=== PATIENT | female | born 1985 | race Caucasian/White ===

== ENCOUNTER 2018-02-19 13:45 | Emergency (ER) | payer OTHER ==
[~2018-02-19] VITALS: Ht 160 cm; Wt 49.9 kg
[~2018-02-19 13:45] MED LIST: CIPRO 500MG TA500 MG PO; FLEXERIL10 MG PO; PYRIDIUM200 MG PO
--- NOTE | 2018-02-19 13:59 | ED GENERAL ADULT ---
History of Present Illness General Chief Complaint: Syncope and Near-Syncope Stated Complaint: SYNCOPE Source: patient Exam Limitations: clinical condition Vital Signs & Intake/Output Vital Signs & Intake/Output Vital Signs Date Time Temp Pulse Resp B/P B/P Pulse O2 O2 Flow FiO2 Mean Ox Delivery Rate 02/19 1624 98.2 98 18 136/86 99 Room Air 02/19 1522 126 24 139/65 99 Room Air 02/19 1416 101.1 02/19 1350 101.1 115 18 136/56 99 Room Air Allergies Coded Allergies: Penicillins (Severe, ANAPHYLAXIS - COMA 02/19/18) aspirin (Severe, ANAPHYLAXIS 02/19/18) Reconcile Medications No Known Home Medications Triage Note: PT DROVE HERSELF TO THE ER WITH C/O CHEST PAIN. PT HAD SYNCOPAL EPISODE WHILE WAITING FOR TRIAGE. PT BROUGHT TO ROOM 10 ALERT AND C/O /10 CHEST PAIN. Triage Nurses Notes Reviewed? yes : No Patient currently breastfeeds: No HPI: Patient is a 32-year-old female who states she has no past medical history who presented by private vehicle today to the ED. When she arrived at the triage desk, she abruptly collapsed, and thankfully was able to be guided the floor without trauma by staff. Just prior to collapsing she stated that she had chest pain. We rushed her to a resuscitation bay, where she began to regain consciousness and stated that since yesterday she felt that she could not breathe. She is tachycardic into the 120s, but not hypoxic. Once she regained normal orientation, she states that she has intense retrosternal chest pressure and the sensation that she cannot get enough air. She has no history of DVT or PE, and neither does her mother or father to her knowledge. She does not take oral contraceptives and has had no recent long distance travel. She does state that she has been "very stressed recently" from family stressors. Past History Travel History Traveled to [place] past 21 day No Medical History Any Pertinent Medical History? see below for history Surgical History Surgical History: non-contributory Psychosocial History What is your primary language Panamanian Tobacco Use: Never used ETOH Use: denies use Illicit Drug Use: denies illicit drug use Family History Hx Contributory? No Review of Systems Review of Systems Constitutional: Reports: see HPI. EENTM: Reports: no symptoms. Respiratory: Reports: see HPI, short of breath. Denies: cough, hemoptysis, orthopnea, sputum production, stridor, wheezing. Cardiovascular: Reports: see HPI, chest pain. GI: Reports: no symptoms. Genitourinary: Reports: no symptoms. Musculoskeletal: Reports: no symptoms. Skin: Reports: no symptoms. Neurological/Psychological: Reports: see HPI, anxiety. Hematologic/Endocrine: Reports: no symptoms. Immunologic/Allergic: Reports: no symptoms. All Other Systems: Reviewed and Negative Physical Exam Physical Exam General Appearance: well developed/nourished, lethargic, severe distress Comments: HEENT: Inspection of the head reveals a normocephalic cranium with no signs of trauma. Ophtho: Extraocular muscles are intact and pupils are equal and reactive to light bilaterally with no afferent pupillary defect. The sclera are noninjected , and there is no obvious discharge. Neck: The trachea is midline, there is no obvious asymmetry or mass over the thyroid, and there is no midline cervical spine tenderness Respiratory: Dyspneic, tachypnea, but not hypoxic. Cardiac: Tachycardic without appreciable murmurs on auscultation. No obvious JVD. GI: Examination of the abdomen reveals no significant focal tenderness in any of the four quadrants. There is negative Jordan's sign, negative McBurney's point tenderness, negative John sign, negative Dai-Kilgore sign, and no signs of peritonitis whatsoever on percussion or deep palpation. The skin is intact with no sign of trauma or infection. : Deferred Neuro: After she regained consciousness, the patient is oriented to person, place, time, and situation, with no obvious focal motor deficits. There were no sensory deficits, and the patient exhibit purposeful movement of all 4 extremities. Cranial nerves II through XII are intact, and gait is normal. Behavioral: Anxious regarding her current situation and symptoms Dermatologic: Dermatologic examination reveals no diffuse rashes or exanthems, no petechiae, no ecchymoses, and no other signs of erythema or infection. Core Measures ACS in differential dx? Yes CVA/TIA Diagnosis: No Sepsis Present: No Sepsis Focused Exam Completed? No Progress Differential Diagnoses I considered the following diagnoses in my evaluation of the patient: PE, ACS, pneumothorax, pneumonia, multiple other processes possible Plan of Care: Orders Procedure Date/time Status LACTIC ACID 02/19 1857 Active BLOOD CULTURE 02/19 1615 Active BLOOD CULTURE 02/19 1557 Active LACTIC ACID 02/19 1557 Complete EKG 02/19 1419 Active Add-on Test (ER Only) 02/19 1418 Active HUMAN BETA HCG SCREEN 02/19 1406 Complete TROPONIN LEVEL 02/19 1354 Complete COMPREHENSIVE METABOLIC PANEL 02/19 1354 Complete CBC WITHOUT DIFFERENTIAL 02/19 1354 Complete EKG 02/19 1349 Active Current Medications Sig/Dominique Start time Last Medication Dose Stop Time Status Admin Fluconazole 400 MG ONCE ONE 02/19 1645 AC (Diflucan) 02/19 1844 Sodium Chloride 200 ML (Normal Saline 0.9%) Laboratory Tests 02/19/18 161: Lactic Acid 1.2 02/19/18 140: Anion Gap 14, Estimated GFR > 60, BUN/Creatinine Ratio 13.3, Glucose 90, Calcium 9.3, Total Bilirubin 1.6 H, AST 18, ALT 26, Alkaline Phosphatase 50, Troponin I < 0.01, Total Protein 7.3, Albumin 4.5, Globulin 2.8, Albumin/Globulin Ratio 1.6 , Total Beta HCG NEGATIVE, CBC w Diff NO MAN DIFF REQ, RBC 4.72, MCV 81.4, MCH 27.5, MCHC 33.8, RDW 15.1 H, MPV 9.9, Gran % 60.0, Lymphocytes % 32.2, Monocytes % 7.1, Eosinophils % 0.3, Basophils % 0.4, Absolute Granulocytes 3.5, Absolute Lymphocytes 1.9, Absolute Monocytes 0.4, Absolute Eosinophils 0, Absolute Basophils 0 Microbiology 02/19 1615 BLOOD: Blood Culture - RECD 02/19 161 BLOOD: Blood Culture - RECD Initial ED EKG: SINUS TACHYCARDIA WITH BORDERLINE PROLONGED qt INTERVAL, NORMAL pr INTERVALS AND qt INTERVALS, NONSPECIFIC st SEGMENT CHANGES, NO stemi Comments: Patient presented with a constellation of symptoms including syncope at the triage desk, dyspnea, tachypnea, tachycardia, and fever. Everything except the fever was concerning for pulmonary embolism. She had no risk factors, no exogenous hormones, and was a nonsmoker. However, even our high clinical concern we obtained a CT angiogram which was negative for PE, however it was positive for pneumomediastinum. Given her fever, we treated this aggressively. I immediately contacted [place] to coordinate transfer as there is no cardiothoracic surgery. Hola; I contacted ID to discuss antibiotic choice; I contacted EMS to transfer the patient via ALS to [place]. We administered clindamycin but the patient declined the ciprofloxacin and the antifungal, fearing another anaphylactic reaction like she had with penicillin. Her anxiety is contributing to her overall syndrome significantly, and she required significant coaching and reassurance. Nevertheless, the patient was transferred to [place] for definitive care in guarded condition. 1550: Discussed with [facility]. Accepted to Dr. Esparza. Called ID to discuss abx choice. 1600: Discussed w/ ID on-call Dr. Palacios. Given the patient's anaphylactic penicillin allergy, he stated that Zosyn and Unasyn are both contraindicated, and recommended clindamycin and ciprofloxacin IV. I have ordered these dosages to be given medially following cultures. Lactate ordered. PATIENT: GLEN ODONNELL PRESENT AGE: 32 PATIENT ACCOUNT NO: [id number] : 87 LOCATION: [facility] ORDERING PHYSICIAN: Cuco Phillips DO SERVICE DATE: 02/19/18 EXAM TYPE: CAT - CTA CHEST-PULMONARY EMBOLISM EXAMINATION: CT ANGIOGRAM OF THE CHEST WITH AND WITHOUT CONTRAST (CT PULMONARY ANGIOGRAM FOR PE) CLINICAL INFORMATION: Chest pain. COMPARISON: Chest radiography, most recent 02/19/2018. TECHNIQUE: Prior to contrast administration, noncontrast localization images were obtained. Subsequently, multidetector volumetric imaging was performed from the thoracic inlet to below the diaphragms following the administration of 95 mL Optiray 320 intravenous contrast. No contrast reaction reported. Sagittal, coronal, and MIP oblique sagittal reformatted images were obtained on the CT workstation, uploaded to PACS, and reviewed. Total exam dose-length product 158 mGy-cm. FINDINGS: QUALITY OF STUDY/CONTRAST BOLUS: Satisfactory. PULMONARY ARTERIES: No central or segmental pulmonary emboli. THORACIC AORTA: No aneurysm or dissection. LUNG: No focal consolidation, nodules or masses. PLEURA: No pleural effusion or pneumothorax. MEDIASTINUM: Small volume of pneumomediastinum. No mediastinal fluid collection. Residual thymic tissue noted. No mediastinal adenopathy. No cardiomegaly. No evidence of septal bowing or right heart strain. CHEST WALL/AXILLA: No axillary or internal mammary lymphadenopathy. OSSEOUS STRUCTURES: No acute osseous abnormalities. UPPER ABDOMEN: No acute intra-abdominal abnormalities. No reflux of contrast into the hepatic veins to suggest elevated right heart pressures. IMPRESSION: 1. No pulmonary embolism. 2. Small volume of pneumomediastinum. 3. No acute pulmonary pathology. 4. Findings discussed with Dr. Phillips at 3:25 PM on 02/19/2018. VTE: Negative DICTATED BY: Ryland Finney MD DATE/TIME DICTATED:02/19/181523 E BUSINESS MANAGER:ALEX DATE/TIME TRANSCRIBED:02/19/181523 CONFIDENTIAL, DO NOT COPY WITHOUT APPROPRIATE AUTHORIZATION. <Electronically signed in Other Vendor System> SIGNED BY: Ryland Finney MD 02/19/18 6111 Departure Departure Time of Disposition: 1700 Disposition: OTHER GENERAL HOSPITAL (ACUTE) Condition: Stable Clinical Impression Primary Impression: Pneumomediastinum Referrals: Patient Has No Primary Care Dr (PCP/Family) Departure Forms: Customer Survey General Discharge Information Prescriptions: Current Visit Scripts No Known Home Medications Critical Care Note Critical Care Note Critical Care Time: non-applicable Comments: Critical care time spent >60 minutes. The patient was suffering from a critical illness that acutely impairs one or more vital organ systems and there is a high probability of imminent or life threatening deterioration in the patient's condition. During this time I was personally involved in activities including performing advanced diagnostics, consulting multiple specialists, considering a broad differential, monitoring the airway, working up for sepsis, and transferring to a tertiary care institution, and decision making of high complexity to assess, manipulate, and support vital organ system failure (in this case, pneumomediastinum from potential Boerhaave's) and/or to prevent further life threatening deterioration of the patient's condition. The failure to initiate these interventions on an urgent basis would likely result in sudden , clinically significant or life threatening deterioration in the patient's condition.
[2018-02-19 14:26] LABS: ABSOLUTE BASOPHIL COUNT 0 /CUMM (0.0-0.2); ABSOLUTE EOSINOPHIL COUNT 0 /CUMM (0.0-0.7); ABSOLUTE GRANULOCYTE CT 3.5 /CUMM (1.4-6.5); ABSOLUTE LYMPH COUNT 1.9 /CUMM (1.2-3.4); ABSOLUTE MONOCYTE COUNT 0.4 /CUMM (0.10-0.60); BASOPHIL % 0.4 % (0.0-2.0); EOSINOPHIL % 0.3 % (0-5); HEMATOCRIT 38.4 % (37-47); MEAN CORPUSCULAR HGB 27.5 PG (27.0-31.0); MEAN CORPUSCULAR HGB CONC 33.8 G/DL (33.0-37.0); MEAN CORPUSCULAR VOLUME 81.4 FL (81.0-99.0); MEAN PLATELET VOLUME 9.9 FL (7.4-10.4); PLATELET COUNT 279 /CUMM (130-400); RBC DISTRIBUTION WIDTH 15.1 % (11.5-14.5); RED BLOOD CELL CT 4.72 /CUMM (4.20-5.40); WHITE BLOOD CELL COUNT 5.8 /CUMM (4.8-10.8)
--- NOTE | 2018-02-19 15:27 | RADIOLOGY REPORT ---
EXAMINATION: XR PORTABLE CHEST CLINICAL INFORMATION: Chest pain. COMPARISON: Chest radiography 08/27/2012. TECHNIQUE: Portable frontal view of the chest was obtained. FINDINGS: No new significant abnormality is noted involving the heart, lungs, mediastinum, bony thorax or soft tissues. IMPRESSION: Unremarkable examination.
--- NOTE | 2018-02-19 15:42 | CT SCAN REPORT ---
EXAMINATION: CT ANGIOGRAM OF THE CHEST WITH AND WITHOUT CONTRAST (CT PULMONARY ANGIOGRAM FOR PE) CLINICAL INFORMATION: Chest pain. COMPARISON: Chest radiography, most recent 02/19/2018. TECHNIQUE: Prior to contrast administration, noncontrast localization images were obtained. Subsequently, multidetector volumetric imaging was performed from the thoracic inlet to below the diaphragms following the administration of 95 mL Optiray 320 intravenous contrast. No contrast reaction reported. Sagittal, coronal, and MIP oblique sagittal reformatted images were obtained on the CT workstation, uploaded to PACS, and reviewed. Total exam dose-length product 158 mGy-cm. FINDINGS: QUALITY OF STUDY/CONTRAST BOLUS: Satisfactory. PULMONARY ARTERIES: No central or segmental pulmonary emboli. THORACIC AORTA: No aneurysm or dissection. LUNG: No focal consolidation, nodules or masses. PLEURA: No pleural effusion or pneumothorax. MEDIASTINUM: Small volume of pneumomediastinum. No mediastinal fluid collection. Residual thymic tissue noted. No mediastinal adenopathy. No cardiomegaly. No evidence of septal bowing or right heart strain. CHEST WALL/AXILLA: No axillary or internal mammary lymphadenopathy. OSSEOUS STRUCTURES: No acute osseous abnormalities. UPPER ABDOMEN: No acute intra-abdominal abnormalities. No reflux of contrast into the hepatic veins to suggest elevated right heart pressures. IMPRESSION: 1. No pulmonary embolism. 2. Small volume of pneumomediastinum. 3. No acute pulmonary pathology. 4. Findings discussed with Dr. Phillips at 3:25 PM on 02/19/2018. VTE: Negative
[2018-02-19 16:24] VITALS: BP 136/86
== END 2018-02-19 17:00 | disposition short-term general hospital (02) ==
LOC: ERH 13:45
PROVIDERS: Student in an Organized Health Care Education/Training Program
DX: J98.2 Interstitial emphysema (principal)
CPT/HCPCS: 71045; 87040; 93005; 93010; 96361; 96365; 96375; 99291; J0744; J1200; J1450; J2930; J7040; J7060